=== PATIENT | female | born 1995 | race Caucasian/White ===

== ENCOUNTER 2020-09-03 21:32 | Emergency (ER) | payer OTHER, SELFPAY ==
[2020-09-03 21:37] VITALS: BP 162/96; PULSE 84; RESP 16; TEMP 36.5; O2SAT 98
--- NOTE | 2020-09-03 21:41 | ED.GENADUL_ITS ---
Discharge Plan Disposition Patient Disposition: HOME Condition: Stable Discharge Details Clinical Impression: Urinary tract infection Primary Care Provider: Carin Ruth ED Provider: Lianne Pavon Home Meds and New Rx's Prescriptions: New cephalexin 500 mg capsule 500 mg PO BID Qty: 4 RF: 0 No Action sertraline [Zoloft] 50 mg Tablet 50 mg PO DAILY RF: 0 Discharge Instructions Instructions: Urinary Tract Infection in Women (ED) Additional Instructions: Drink at least 6 to 8 glasses of water daily to stay well-hydrated Take your antibiotics as prescribed even if you feel better Referrals: Primary Care Provider [Outside] (In 2 to 3 days if symptoms are not improving or sooner if worsening) Medical Decision Making presents with symptoms most consistent of urinary tract infection. no fevers, nausea or vomiting. will obtain UA. culture pending, will give keflex 500 mg po bid for 3 days Medical Records Medical records reviewed: Yes I reviewed the patient's medical records. Lab Data Lab results reviewed: Yes I reviewed the patient's lab results. Lab results narrative: Laboratory Results - last 24 hr 09/03/20 21:48 Urine Color Yellow Urine Clarity Sl cloudy Urine pH 6.0 Ur Specific [place] 1.025 Urine Protein 100 H Urine Ketones Negative Urine Blood Trace-intact H Urine Nitrite Negative Urine Bilirubin Negative Urine Urobilinogen 0.2 Ur Leukocyte Esterase Trace H Urine RBC 0-2 Urine WBC 10-20 H Ur Epithelial Cells Rare Urine Crystals Negative Urine Bacteria Few Urine Casts Negative Urine Mucus Negative Ur Culture Indicated? Yes Urine Glucose Negative HPI General Mode of arrival: ambulatory . Date/Time Provider Initiated Documentation: 09/03/20 21:35 . Limitations to Documentation: no limitations . Information obtained by: patient . HPI Narrative: Patient presents with a 3-day history of lower abdominal discomfort low back pain frequency and urgency. She has not had any dysuria or hematuria. There is been no fevers nausea or vomiting. Related Data Home Medications Medication Instructions Recorded Confirmed cephalexin 500 mg PO BID #4 cap 09/03/20 sertraline [Zoloft] 50 mg PO DAILY 09/03/20 09/03/20 Previous Rx's Medication Instructions Recorded cephalexin 500 mg PO BID #4 cap 09/03/20 Allergies Allergy/AdvReac Type Severity Reaction Status Date / Time No Known Allergies Allergy Unverified 09/03/20 21:40 General Stated Complaint: Urinary SHELLY: 4 Review of Systems All systems reviewed & are unremarkable except as noted in HPI and below Constitutional Constitutional: Denies fever(s) Gastrointestinal Gastrointestinal: Reports abdominal pain (Lower abdominal discomfort), Denies nausea and Denies vomiting Genitourinary Genitourinary: Denies genital lesions, Denies dysuria and Reports urinary urgency (And frequency) PFSH Social History Smoking/Tobacco Use Status: Never Smoking risk assessment performed?: Yes Alcohol Intake: current Alcohol Intake frequency: a few times a month Drug use: Never Substance use type: does not use Current gender identity: female Do you feel safe at home: Yes Do you feel safe in your relationship?: Yes Exam Const General: cooperative, healthy appearing, comfortable and no acute distress Nutritional Appearance: obese Orientation: oriented x3 HENMT Head: normal to inspection, normocephalic and atraumatic Mouth: oral mucosae normal Resp Effort & Inspection: normal respiratory effort Cardio Rate: regular rate Rhythm: regular rhythm GI Inspection: normal to inspection Palpation: soft Auscultation: normal bowel sounds Back/Spine/Pelvis Back: no CVA tenderness Skin General skin exam: no rashes or lesions noted Neuro General: patient alert, patient awake and patient oriented x3 Course Vital Signs Vital signs: Vital Signs Temperature 36.5 C 09/03/20 21:37 Pulse 84 09/03/20 21:37 Respiratory Rate 16 09/03/20 21:37 Blood Pressure 162/96 H 09/03/20 21:37 Pulse Oximetry 98 09/03/20 21:37 Temperature 36.5 C 09/03/20 21:37 Temperature Source Skin 09/03/20 21:37 Pulse 84 09/03/20 21:37 Respiratory Rate 16 09/03/20 21:37 Blood Pressure 162/96 H 09/03/20 21:37 Blood Pressure Position Sitting 09/03/20 21:37 Pulse Oximetry 98 09/03/20 21:37 Oxygen Delivery Method Room Air 09/03/20 21:37 Oxygen Flow Rate 0 09/03/20 21:37 Pain Level 9 09/03/20 21:37
[2020-09-03 21:55] LABS: Bilirubin Negative (Negative); Blood Trace-intact (Negative); Clarity Sl Cloudy (Clear); Glucose Negative (Negative); Ketones Negative (Negative); Leukocyte Esterase Trace (Negative); Nitrite Negative (Negative); Specific Gravity 1.025 (1.005-1.025); Urobilinogen 0.2 EU/dL (Up TO 0.2)
[2020-09-03 22:06] LABS: Bacteria Few HPF (Negative); C & S Indicated? Yes; Casts Negative LPF (Negative); Crystals Negative HPF (Negative); Epithelial Cells Rare HPF (Negative); Mucus Negative (Negative); RBC 0-2 HPF (0-2)
[2020-09-03] MEDS: Cephalexin 500 MG CAP, 2 CAPS/BTL PO (22:12)
== END 2020-09-03 22:14 | disposition home or self-care (01) ==
PROVIDERS: Emergency Provider Nurse Practitioner Acute Care; PCP General Practice
DX: N39.0 Urinary tract infection, site not specified (principal); B95.7 Other staphylococcus as the cause of diseases classified elsewhere
CPT/HCPCS: 81025; 87077; 99283; 81003; 81015; 87086; 87186

== ENCOUNTER 2022-01-13 00:53 | Emergency (ER) | payer MEDICAID, SELFPAY ==
[2022-01-13 01:02] VITALS: BP 174/93; PULSE 96; RESP 16; TEMP 36.1; O2SAT 98
[2022-01-13 01:31] LABS: Abs Immature Grans 0.05 10^3/uL (0.0-0.06); Absolute Basophil Count 0.05 10^3/uL (0.0-0.2); Absolute Monocyte Count 1.04 10^3/uL (0.1-0.8); Basophils % 0.4; Eosinophils % 2.3; HCT 36.1 % (36.0-46.0); Immature Grans % 0.4; Lymphocytes % 27.3; MCH 28.6 pg (27.0-33.0); MCHC 33.2 % (32.0-36.0); MCV 86 fL (80-95); MPV 9.5 fL (8.0-11.0); Monocytes % 8.1; Neutrophils % 61.5; Platelet Count 276 10^3/uL (130-400); RBC 4.19 10^6/uL (3.93-5.22); RDW 12.7 % (11.7-14.6); RDW-SD 39.5 fL; WBC 12.88 10^3/uL (4.4-10.8)
--- NOTE | 2022-01-13 01:43 | ED.GENADUL_ITS ---
Discharge Plan Disposition Patient Disposition: HOME Condition: Stable Discharge Details Clinical Impression: Third trimester , movement present, Hypertension during in third trimester Primary Care Provider: Carin Ruth ED Provider: Meghan Ovalles Home Meds and New Rx's Prescriptions: New labetalol 200 mg tablet 200 mg PO BID Qty: 14 0RF Continued escitalopram oxalate 10 mg tablet 10 tab PO DAILY Label Comments: TAKE ONE TABLET BY MOUTH EVERY DAY labetalol 100 mg tablet 400 tab PO DAILY aspirin 81 mg Tablet 162 mg PO DAILY Discharge Instructions Instructions: Hypertension (ED) Additional Instructions: Your lab work today is reassuring and shows no evidence of acute concerning or significant findings. Your bedside ultrasound today noted normal movement and reassuring heart rate. Your blood pressure has improved while here in the emergency department. You are being sent home with 2 doses of labetalol to take tomorrow. A prescription for labetalol was also sent electronically to your pharmacy. It is recommended that you call your upper inspector at [facility] tomorrow for follow-up this week. Your upper inspector is recommending you have your blood pressure checked tomorrow at your obstetrics office or if you can obtain a blood pressure cuff for home. Return immediately to the emergency department if you develop any worsening or new concerning symptoms. Discharge Data Discharge Date/Time-TO BE ENTERED AT DEPARTURE: 01/13/22 03:28 Discharge Physician: Meghan Ovalles Medical Decision Making 26yo F at 27 weeks with history of preeclampsia with 2 previous pregnancies presents with concern for decreased movement today. She denies any abdominal pain or vaginal bleeding. She does also endorse that she ran out of her labetalol and has not taken it for 4 days. Blood pressure on arrival 174/93. Recheck blood pressure upon my assessment is 153/81. Patient denies any headache or blurry vision. Patient is oriented x3 and has no focal deficits. Bedside ultrasound notes active movement with heart rate 120s to 130s. Screening labs obtained on arrival and note normal renal function and urinalysis negative for protein. We will give patient a dose of her 200 mg labetalol and continue to monitor. She is followed by [facility]. Case discussed with [facility] Dr. Schroeder who states that patient can be discharged if her blood pressure remains under 160/110. Recommends obtaining BP cuff for home and calling OB in the a.m. If blood pressure greater than 160, recommend IV labetalol. Discussed urinalysis results and that if patient is asymptomatic no indication for antibiotics. Blood pressure 138/79. Patient feels comfortable going home. Pt has a BP cuff at home. She states she is starting to feel the baby move as usual. Will send home with doses of labetalol for tomorrow in addition to a prescription sent electronically to her pharmacy. Advised to call [facility] tomorrow for follow-up this week. Usual and customary return precautions given prior to discharge. Medical Records Medical records reviewed: Yes I reviewed the patient's medical records. Lab Data Lab results reviewed: Yes I reviewed the patient's lab results. Labs: Laboratory Tests Range/Units 01/13/22 01/13/22 01/13/22 01:25 01:25 01:40 WBC (4.4-10.8) 10^3/uL 12.88 H RBC (3.93-5.22) 10^6/uL 4.19 Hgb (11.2-15.7) g/dL 12.0 Hct (36.0-46.0) % 36.1 MCV (80-95) fL 86 MCH (27.0-33.0) pg 28.6 MCHC (32.0-36.0) % 33.2 RDW (11.7-14.6) % 12.7 Plt Count (130-400) 10^3/uL 276 MPV (8.0-11.0) fL 9.5 Immature Gran % 0.4 Neutrophils % 61.5 Lymphocytes % 27.3 Monocytes % 8.1 Eosinophils % 2.3 Basophils % 0.4 Nucleated RBC % (0.0-0.3) % 0.0 Absolute Neutrophils (1.2-6.7) 10^3/uL 7.92 H Absolute Lymphocytes (1.2-3.4) 10^3/uL 3.52 H Absolute Monocytes (0.1-0.8) 10^3/uL 1.04 H Absolute Eosinophils (0.0-0.7) 10^3/uL 0.30 Absolute Basophils (0.0-0.2) 10^3/uL 0.05 Sodium (136-145) mmol/L 135 L Potassium (3.5-5.1) mmol/L 3.4 L Chloride (98-107) mmol/L 105 Carbon Dioxide (21.0-32.0) mmol/L 22.9 Anion Gap (3-11) mmol/L 7.1 BUN (7-18) mg/dL 12 Creatinine (0.55-1.02) mg/dL 0.7 Estimated GFR/1.73 m2 (mL/min/1.73m2) >= 60.00 Glucose (74-106) mg/dL 92 Calcium (8.5-10.1) mg/dL 8.4 L Total Bilirubin (0.2-1.0) mg/dL 0.2 AST (15-37) U/L 15 ALT (14-59) U/L 19 Alkaline Phosphatase (46-116) U/L 98 Total Protein (6.4-8.2) g/dL 6.8 Albumin (3.4-5.0) g/dL 2.6 L Urine Color (Yellow) Yellow Urine Clarity (Clear) Sl Cloudy Urine pH (5-8) 6.5 Ur Specific [place] (1.005-1.025) 1.025 Urine Protein (Negative) mg/dL Negative Urine Ketones (Negative) mg/dL Negative Urine Blood (Negative) Negative Urine Nitrite (Negative) Negative Urine Bilirubin (Negative) Negative Urine Urobilinogen (Up TO 0.2) EU/dL 0.2 Ur Leukocyte Esterase (Negative) Moderate H Urine RBC (0-2) HPF 3-5 H Urine WBC (0-5) HPF 3-5 Ur Epithelial Cells (Negative) HPF Many Urine Crystals (Negative) HPF Negative Urine Bacteria (Negative) HPF Few Urine Casts (Negative) LPF Negative Urine Mucus (Negative) Negative Ur Culture Indicated? No/Sq. Contamination Urine Glucose (Negative) mg/dL Negative HPI General Mode of arrival: ambulatory . Date/Time Provider Initiated Documentation: 01/13/22 00:57 . Limitations to Documentation: no limitations . Information obtained by: patient . HPI Narrative: Patient is a G3, P2 at 27 weeks presents with concern for decreased movement today. Patient states the baby is normally very active and she did not note any movement today. She denies any fever, nausea, vomiting, abdominal pain or vaginal bleeding. She states she was started on labetalol for hypertension at 23 weeks and is followed by [facility] for her history of preeclampsia with her previous 2 pregnancies. She states she ran out of her labetalol last week and has not taken it for the past 4 days. She denies any headache, blurry vision, chest pain, shortness of breath or change in urination. 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 Review of Systems All systems reviewed & are unremarkable except as noted in HPI and below Constitutional Constitutional: Denies chills, Denies excessive sweating, Denies fatigue, Denies fever(s), Denies weakness and Denies weight loss Eyes Eyes: Reports system reviewed and no additional complaints, except as documented and Denies blurry vision ENT Ears, Nose, Mouth, and Throat: Denies vertigo, Denies dizziness, Denies otalgia, Denies nasal congestion, Denies sore throat and Denies throat swelling Cardiovascular Cardiovascular: Denies chest pain, Denies syncope, Denies rapid heart rate and Denies dyspnea Respiratory Respiratory: Denies chest congestion, Denies cough, Denies pain on inspiration and Denies dyspnea Gastrointestinal Gastrointestinal: Denies abdominal pain, Denies diarrhea and Denies vomiting Genitourinary Genitourinary: Denies hematuria, Denies dysuria and Denies flank pain Musculoskeletal Musculoskeletal: Denies back pain and Denies joint swelling Integumentary/Breasts Skin/Breast: Denies lesions and Denies rash Neurologic Neurologic: Denies behavioral changes, Denies confusion, Denies vertigo, Denies dizziness, Denies syncope, Denies localized weakness and Denies weakness Psychiatric Psychiatric: Denies behavioral changes, Denies confusion and Denies depression Endocrine Endocrine: Denies excessive sweating and Denies fatigue Hematologic/Lymphatic Hematologic/Lymphatic: Denies easy bruising and Denies lymphadenopathy Allergic/Immunologic Allergic/Immunologic: Denies throat swelling PFSH All Active Problems (Updated 01/13/22 @ 02:36 by Meghan Ovalles DO) Third trimester (Acute) movement present (Acute) Hypertension during in third trimester (Acute) Medical History (Updated 01/13/22 @ 02:36 by Meghan Ovalles DO) HTN (hypertension) Preeclampsia Surgical History (Updated 01/13/22 @ 02:01 by Meghan Ovalles DO) H/O section Social History Smoking/Tobacco Use Status: Never Smoking risk assessment performed?: Yes Alcohol Intake: current Alcohol Intake frequency: a few times a month Drug use: Never Substance use type: does not use Current gender identity: female Do you feel safe at home: Yes Do you feel safe in your relationship?: Yes Exam Const General: cooperative and healthy appearing Orientation: alert, awake and oriented x3 HENMT Head: normal to inspection Ears: hearing grossly normal bilaterally, external ears normal and TM's normal bilaterally General nose exam: external nose normal Face and sinus: normal facial exam Mouth: oral mucosae normal Teeth and gingiva: dentition normal Throat: posterior oropharynx normal Eyes General: appearance normal, both eyes and all related structures Eyelids: eyelids normal Pupils: PERRL EOM: EOM intact bilaterally Neck Neck: normal visual inspection Lymphatic: no lymphadenopathy noted Chest Chest: normal inspection of the chest Resp Effort & Inspection: normal respiratory effort and able to speak in complete sentences Auscultation: clear to auscultation bilaterally Cardio Rate: regular rate Rhythm: regular rhythm GI Inspection: normal to inspection Palpation: soft, not firm, no guarding, no hepatosplenomegaly, no masses and nontender Auscultation: normal bowel sounds OB/External & Speculum: other (Gravid) Back/Spine/Pelvis Back: no CVA tenderness Skin General skin exam: no rashes or lesions noted Neuro General: patient alert and patient awake Cognition: normal cognition Speech: speech normal Gait: normal gait Motor: muscle tone normal throughout Sensory Exam: no sensory deficits noted Extrem General: normal to inspection, full ROM and capillary refill normal Psych Appearance: grossly normal Mental Status: mental status grossly normal Speech and Movement: speech and movement normal Affect: normal affect Thought Process: normal Course Vital Signs Vital signs: Vital Signs Temperature 97.0 F L 01/13/22 01:02 Pulse 96 H 01/13/22 01:02 Respiratory Rate 16 01/13/22 01:02 Blood Pressure 174/93 H 01/13/22 01:02 Pulse Oximetry 98 01/13/22 01:02 Temperature 97.0 F L 01/13/22 01:02 Pulse 96 H 01/13/22 01:02 Respiratory Rate 16 01/13/22 01:02 Respiratory Effort 01/13/22 01:11 Blood Pressure 174/93 H 01/13/22 01:02 Blood Pressure Position Sitting 01/13/22 01:02 Pulse Oximetry 98 01/13/22 01:02 Pain Level 0 01/13/22 01:10
[2022-01-13 01:44] LABS: ALT 19 U/L (14-59); AST 15 U/L (15-37); Absolute Lymphocyte Count 3.52 10^3/uL (1.2-3.4); Absolute Neutrophil Count 7.92 10^3/uL (1.2-6.7); Albumin 2.6 g/dL (3.4-5.0); Alkaline Phosphatase 98 U/L (46-116); Anion Gap 7.1 mmol/L (3-11); BUN 12 mg/dL (7-18); Bilirubin, Total 0.2 mg/dL (0.2-1.0); CO2 22.9 mmol/L (21.0-32.0); CREATININE 0.7 mg/dL (0.55-1.02); Calcium 8.4 mg/dL (8.5-10.1); Chloride 105 mmol/L (98-107); Glucose 92 mg/dL (74-106); Potassium 3.4 mmol/L (3.5-5.1); Sodium 135 mmol/L (136-145); Total Protein 6.8 g/dL (6.4-8.2)
[2022-01-13 01:52] LABS: Bilirubin Negative (Negative); Blood Negative (Negative); Clarity Sl Cloudy (Clear); Glucose Negative (Negative); Ketones Negative (Negative); Leukocyte Esterase Moderate (Negative); Nitrite Negative (Negative); Specific Gravity 1.025 (1.005-1.025); Urobilinogen 0.2 EU/dL (Up TO 0.2); pH 6.5 (5-8)
[2022-01-13] MEDS: Labetalol 100 MG TAB 200 MG PO (02:12)
[2022-01-13 02:13] LABS: Bacteria Few HPF (Negative); C & S Indicated? No/Sq. Contamination; Casts Negative LPF (Negative); Crystals Negative HPF (Negative); Epithelial Cells Many HPF (Negative); Mucus Negative (Negative)
[2022-01-13] MEDS: Labetalol 100 MG TAB 400 MG PO (03:19)
== END 2022-01-13 03:28 | disposition home or self-care (01) ==
LOC: ER 03:29
PROVIDERS: Emergency Provider Physician Assistant; PCP General Practice
DX: O36.8120 Decreased fetal movements, second trimester, not applicable or unspecified (principal); O16.1 Unspecified maternal hypertension, first trimester; Z3A.27 27 weeks gestation of pregnancy
CPT/HCPCS: 80053; 99284; 81003; 81015; 85025; 99283

== ENCOUNTER 2022-02-16 07:51 | Outpatient (CLI) | payer MEDICAID, SELFPAY ==
[2022-02-16 16:13] VITALS: BP 140/76; PULSE 78
[2022-02-16 16:48] VITALS: BP 140/76; PULSE 78; TEMP 36.7
[2022-02-16 17:41] VITALS: BP 140/76; PULSE 78; TEMP 36.7
--- NOTE | 2022-02-16 17:41 | W.OBNST ---
Date of service: 02/16/22 Time of Service: 15:41 NST Evaluation Reason for NST Reasons for Nonstress Test: CHRONIC HYPERTENSION Gestational Age Gestational Age in Weeks and Days: 32 Weeks and 3Days Test and Monitor Explained Test/Monitor Explained: Test Explained, Monitor Explained and Patient Verbalized Understanding Vital Signs Blood Pressure: 140/76 Pulse: 78 Temperature: 98.1 F Urine Results Urine Protein: Negative Urine Ketones: Negative Urine Glucose: Negative Urine Blood: Negative NST Information Date on Monitor: 02/16/22 Time on Monitor: 16:05 Date off Monitor: 02/16/22 Time off Monitor: 16:45 Total Time on Monitor: 40 NST Interventions: None Contraction Frequency: 0 NST Evaluation Patient States Movement: Present FHR Baseline: 125 Variability: Moderate 6-25 bpm Accelerations: 10x10 Decelerations: None NST Results: Reactive Note NST Note Note: Pt receiving care at [facility] [place]. NST reviewed only. NST Reviewed and Verified by: Edilma Larios
== END 2022-02-16 16:50 | disposition home or self-care (01) ==
LOC: BCD 08:01 → OBS 15:41
PROVIDERS: PCP General Practice; Visit Provider Obstetrics & Gynecology
DX: O10.013 Pre-existing essential hypertension complicating pregnancy, third trimester (principal); Z3A.32 32 weeks gestation of pregnancy
CPT/HCPCS: 59025

== ENCOUNTER 2022-02-24 07:23 | Outpatient (CLI) | payer MEDICAID, SELFPAY ==
[2022-02-24 16:04] VITALS: BP 144/75; PULSE 76; TEMP 36.8
[2022-02-24 16:41] VITALS: BP 156/79; PULSE 78
[2022-02-24 16:47] VITALS: BP 144/75; PULSE 76
--- NOTE | 2022-02-24 19:20 | PDOC.NST_ITS ---
Date of service: 02/24/22 Time of Service: 19:20 NST Evaluation Reason for NST Reasons for Nonstress Test: CHRONIC HYPERTENSION Reason for NST Other: Pt seen at [facility] x1 weekly from [facility] [place] for NSTs. Gestational Age Gestational Age in Weeks and Days: 33 Weeks and 4Days Test and Monitor Explained Test/Monitor Explained: Test Explained, Monitor Explained and Patient Verbalized Understanding Vital Signs Blood Pressure: 144/75 Pulse: 76 Temperature: 98.2 F Urine Results Urine Protein: Negative Urine Ketones: Negative Urine Glucose: Negative Urine Blood: Negative NST Information Date on Monitor: 02/24/22 Time on Monitor: 16:13 Date off Monitor: 02/24/22 Time off Monitor: 16:40 Total Time on Monitor: 27 NST Interventions: None Contraction Frequency: None NST Evaluation Patient States Movement: Present FHR Baseline: 120 Variability: Moderate 6-25 bpm Accelerations: 15x15 Decelerations: None NST Results: Reactive Note NST Note Note: Reactive NST, Category 1 Strip. Patient seen BP reviewed. Follow up weekly at [facility] [place], and weekly NST without contractions every her cervix uterine contractions NST Reviewed and Verified by: Patricia Houser
[2022-02-24 19:21] VITALS: BP 144/75; PULSE 76; TEMP 36.8
== END 2022-02-24 16:50 | disposition home or self-care (01) ==
LOC: BCD 07:24 → OBS 15:09
PROVIDERS: PCP General Practice; Visit Provider Obstetrics & Gynecology
DX: O10.013 Pre-existing essential hypertension complicating pregnancy, third trimester (principal); Z3A.33 33 weeks gestation of pregnancy
CPT/HCPCS: 59025

== ENCOUNTER 2022-03-04 16:57 | Outpatient (CLI) | payer MEDICAID, SELFPAY ==
[2022-03-04 17:40] VITALS: BP 135/82; PULSE 86; TEMP 36.7
[2022-03-04 18:01] LABS: ROM Plus Negative
[2022-03-04 18:04] VITALS: BP 180/85; PULSE 86
[2022-03-04 18:10] VITALS: BP 135/82
--- NOTE | 2022-03-05 09:26 | W.OBNST ---
Date of service: 03/05/22 Time of Service: 09:26 NST Evaluation Reason for NST Reasons for Nonstress Test: OTHER, SEE COMMENT Reason for NST Other: ? SROM Gestational Age Gestational Age in Weeks and Days: 34 Weeks and 5Days Test and Monitor Explained Test/Monitor Explained: Test Explained, Monitor Explained and Patient Verbalized Understanding Vital Signs Blood Pressure: 135/82 Pulse: 86 Temperature: 98.1 F Urine Results Urine Protein: Negative Urine Ketones: Negative Urine Glucose: Negative Urine Blood: Negative NST Information Date on Monitor: 03/04/22 Time on Monitor: 17:43 Date off Monitor: 03/04/22 Time off Monitor: 18:15 Total Time on Monitor: 32 NST Interventions: None Contraction Frequency: none NST Evaluation Patient States Movement: Present FHR Baseline: 125 Variability: Moderate 6-25 bpm Accelerations: 15x15 Decelerations: None NST Results: Reactive Note NST Note Note: Reactive strip, Category 1 NST Reviewed and Verified by: Patricia Houser
[2022-03-05 09:27] VITALS: BP 135/82; PULSE 86; TEMP 36.7
== END 2022-03-04 18:20 | disposition home or self-care (01) ==
LOC: BCD 16:59 → OBS 17:18
PROVIDERS: PCP General Practice; Visit Provider Obstetrics & Gynecology
DX: O10.013 Pre-existing essential hypertension complicating pregnancy, third trimester (principal); Z3A.34 34 weeks gestation of pregnancy
CPT/HCPCS: 59025; 84112

== ENCOUNTER 2022-03-12 09:40 | Outpatient (CLI) | payer MEDICAID, SELFPAY | END 2022-03-12 09:41 | disposition home or self-care (01) | PROVIDERS: PCP General Practice; Visit Provider Obstetrics & Gynecology ==

== ENCOUNTER 2022-03-19 07:21 | Outpatient (CLI) | payer SELFPAY | END 2022-03-19 17:40 | disposition home or self-care (01) | LOC: BCD 07:24 → OBS 08:14 | PROVIDERS: PCP General Practice; Visit Provider Obstetrics & Gynecology ==

== ENCOUNTER 2023-08-23 18:29 | Outpatient (REF) | payer OTHER, SELFPAY ==
--- NOTE | 2023-08-23 13:45 | PAPFT_PTH ---
PATIENT: Xavier Villagomez I LOC: [facility] U#:[id number] AGE/SX: 28/F ROOM: RE08/23/[address]: MARY SIU : 1995 BED: DIS: 08/23/2023 SPEC #: [id number] RECD: 08/23/23 18:33 STATUS: CARL REQ #: [id number] ALFREDO: 08/23/23 13:[address]: Mary Siu DEPT: [facility] Cytology RECD BY: Raquel Doran ENTERED: 08/23/23 18:33 SP TYPE: PAPFT OTHR DR: Carin Ruth Tissues: 1 - CX/ENDOCX FOR PAP SMEARS Procedures: PAP THIN PREP/UVM Screening Comments: [id number]
== END 2023-08-23 18:30 | disposition home or self-care (01) ==
LOC: NCHCN 18:29
PROVIDERS: PCP General Practice; Visit Provider Nurse Practitioner Family
DX: Z00.00 Encounter for general adult medical examination without abnormal findings (principal); Z12.4 Encounter for screening for malignant neoplasm of cervix; Z11.51 Encounter for screening for human papillomavirus (HPV)
CPT/HCPCS: 88142

== ENCOUNTER 2023-09-01 17:08 | Outpatient (CLI) | payer OTHER, SELFPAY ==
--- NOTE | 2023-09-01 17:00 | RT.EKG_ITS ---
APPROVED REPORT Exam: Resting ECG Reason for Exam: chest discomfort Patient Location: O HR:71 bpm ECG Measurements Heart Rate 71 AXIS NC 197 P 6 QRSd 96 QRS 2 QT 395 T 29 QTc 430 Conclusion Sinus rhythm...normal P axis, V-rate 50- 99 Abnormal Q suggests anterior infarct...Q >30mS in V2-V4 I have reviewed and interpreted ECG and agree with software generated interpretation.
== END 2023-09-01 17:09 | disposition home or self-care (01) ==
LOC: DI.CM 17:08
PROVIDERS: PCP General Practice; Visit Provider Nurse Practitioner Family
DX: R07.89 Other chest pain (principal)
CPT/HCPCS: 93010

== ENCOUNTER 2023-09-01 17:40 | Emergency (ER) | payer OTHER, SELFPAY ==
--- NOTE | 2023-09-01 17:30 | RT.EKG_ITS ---
APPROVED REPORT Exam: Resting ECG Reason for Exam: chest pressure Patient Location: E HR:89 bpm ECG Measurements Heart Rate 89 AXIS LA 197 P 53 QRSd 100 QRS 61 QT 374 T 31 QTc 455 Conclusion Sinus rhythm...normal P axis, V-rate 60- 99 Low voltage, precordial leads...precordial leads <1.0mV Abnormal Q suggests anterior infarct...Q >30mS in V2-V4 NSR @ 89 Normal [place]/Intervals Normal ST segments Q waves in v1 - v2
--- NOTE | 2023-09-01 17:47 | ED.GENADUL_ITS ---
HPI General Mode of arrival: ambulatory . Date/Time Provider Initiated Documentation: 09/01/23 17:47 . Limitations to Documentation: no limitations . Information obtained by: patient . HPI Narrative: Patient seen and express care for chest pain and referred to ED. Patient reports she has had intermittent episodes lasting for 2 to 3 hours at a time of right sided chest pain over the last week. It is pleuritic in nature and she feels like she cannot take a deep breath at times. Denies any radiation of pain. Denies any diaphoresis, lightheadedness, nausea, vomiting. Has had mild nasal congestion and mild cough but no fever. Denies any leg pain or leg swelling. No previous history of clots. She is not on control. She does report that her father had a heart attack at age 39. Recently started on new medications for ADHD. Related Data Home Medications Medication Instructions Recorded Confirmed escitalopram oxalate 10 mg tablet 10 tab PO DAILY 01/13/22 09/01/23 clonidine HCl 0.1 mg tablet 0.1 mg PO BID 06/18/23 09/01/23 lisdexamfetamine 20 mg capsule 20 mg PO DAILY 09/01/23 09/01/23 (Vyvanse) Allergies Allergy/AdvReac Type Severity Reaction Status Date / Time No Known Allergies Allergy Unverified 09/01/23 16:43 General SHELLY: 4 Review of Systems Narrative: Per HPI Exam Narrative Exam Narrative: Const: WDWN female in NAD. HEENT: NC/AT. Normal facial exam. Eyes: Normal conjunctiva and sclera. Neck: Supple. Trachea midline. Lungs: Normal respiratory effort. Lungs are clear. No chest wall tenderness. Cor: RRR without murmur/gallop. Good radial pulses. GI: Soft. NT/ND. No guarding or rebound. Neuro: A+O x 3. Normal speech, mentation, gait. Cranial nerves II - XII grossly intact. No gross motor or sensory deficit. Ext: No C/C/E. No calf tenderness. Skin: Warm and dry without rash. Medical Decision Making Patient is a 28-year-old female presenting with right-sided chest pain that is somewhat pleuritic in nature and has been coming and going over the last week lasting few hours at a time. Denies shortness of breath but does feel like she cannot take a deep breath. Mild congestion and cough but no fever, sore throat. Chest pain is not reproducible. She is low risk for PE per Wells criteria and subsequently PERCs out. Her EKG is sinus rhythm with normal intervals, axis, ST segments. History and symptoms not consistent with aortic pathology. Given age doubt this is ACS but will obtain labs including delta troponin. Likely pleurisy related to probable mild URI. Will obtain chest x-ray but doubt pneumonia given normal lung sounds and saturations. Patient's chest x-ray per my read with no acute cardiopulmonary process. Laboratory studies are unremarkable with normal white count and hemoglobin, normal chemistries and liver function. Initial troponin less than 50 and 3-hour troponin remains the same. Given mild URI symptoms with pleuritic type chest pain on the right this is likely pleurisy and related to a viral infection. Recommend ibuprofen 3 times a day over the next few days and follow-up with primary care next week. Return precautions provided. Medical Records Medical records reviewed: Yes I reviewed the patient's medical records. Lab Data Lab results reviewed: Yes I reviewed the patient's lab results. ECG Data Attestation: I personally reviewed and interpreted this ECG (s) as follows: Prior ECG tracings: available for review Interpretation: see EKG Quality:SDOH Health Related Social Needs: No Data to Display [facility] All Active Problems (Updated 09/01/23 @ 21:36 by Michael Medina MD) Atypical chest pain (Acute) Medical History HTN (hypertension) Preeclampsia Surgical History H/O section Social History Smoking/Tobacco Use Status: Never Smoking risk assessment performed?: Yes Alcohol Intake: current Alcohol Intake frequency: a few times a month Drug use: Never Substance use type: does not use Current gender identity: female Do you feel safe at home: Yes Do you feel safe in your relationship?: Yes Discharge Plan Disposition Patient Disposition: Home Condition: Good Discharge Details Clinical Impression: Atypical chest pain Primary Care Provider: Carin Ruth ED Provider: Michael Medina Home Meds and New Rx's Prescriptions: Continued lisdexamfetamine [Vyvanse] 20 mg capsule 20 mg PO DAILY clonidine HCl 0.1 mg tablet 0.1 mg PO BID escitalopram oxalate 10 mg tablet 10 tab PO DAILY Patient Comments: TAKE ONE TABLET BY MOUTH EVERY DAY Discharge Instructions Instructions: Chest Pain (ED) Additional Instructions: You were seen for right-sided chest pain that is somewhat pleuritic in nature. Your exam, EKG, chest x-ray, laboratory studies are reassuring. Given the mild URI symptoms and pleuritic type pain this is likely all viral in nature. Try taking Motrin 3 times a day for the next few days to see if this helps with your chest pain. Follow-up with your primary care next week. Return to the ED for any new or worsening chest pain, shortness of breath, spiking fevers, other concerns.
[2023-09-01 17:50] VITALS: RESP 16
[2023-09-01 17:52] VITALS: BP 173/87; PULSE 88; O2SAT 100
[2023-09-01 17:53] VITALS: O2SAT 100
[2023-09-01 18:00] VITALS: O2SAT 100
--- NOTE | 2023-09-01 18:00 | DI.RAD_ITS ---
Exam(s) XR CHEST 2V PA LATERAL EXAM: XR CHEST 2V PA LATERAL 2 CLINICAL HISTORY: CP TECHNIQUE: 2D digital imaging was performed of the chest. Two images were obtained. PA and lateral views were obtained. COMPARISON: No exams were available for comparison FINDINGS: MEDIASTINUM: Normal. HEART: Normal. PULMONARY VASCULATURE: Normal. LUNGS: Clear. PLEURAL SPACE: No pleural effusion or pneumothorax. BONE:Within normal limits for the patient's age. OTHER FINDINGS:Normal. IMPRESSION: No acute pulmonary findings. DATA REPOSITORY: RADIATION DOSE DELIVERED:
[2023-09-01 18:01] VITALS: BP 162/74; PULSE 82; O2SAT 100
[2023-09-01 18:10] LABS: Abs Immature Grans 0.03 10^3/uL (0.0-0.06); Absolute Basophil Count 0.05 10^3/uL (0.0-0.2); Absolute Lymphocyte Count 3.74 10^3/uL (1.2-3.4); Absolute Monocyte Count 0.75 10^3/uL (0.1-0.8); Absolute Neutrophil Count 5.68 10^3/uL (1.2-6.7); Basophils % 0.5; HCT 39.2 % (36.0-46.0); HGB 12.8 g/dL (11.2-15.7); Immature Grans % 0.3; Lymphocytes % 36.1; MCH 26.6 pg (27.0-33.0); MCHC 32.7 % (32.0-36.0); MCV 82 fL (80-95); MPV 9.6 fL (8.0-11.0); Monocytes % 7.2; Neutrophils % 54.9; Platelet Count 387 10^3/uL (130-400); RBC 4.81 10^6/uL (3.93-5.22); RDW 13.7 % (11.7-14.6); RDW-SD 39.9 fL; WBC 10.35 10^3/uL (4.4-10.8)
[2023-09-01 18:29] LABS: ALT 18 U/L (14-59); AST 12 U/L (15-37); Alkaline Phosphatase 85 U/L (46-116); Anion Gap 10.2 mmol/L (3-11); BUN 13 mg/dL (7-18); Bilirubin, Total 0.3 mg/dL (0.2-1.0); CO2 26.8 mmol/L (21.0-32.0); CREATININE 0.9 mg/dL (0.55-1.02); Calcium 9.6 mg/dL (8.5-10.1); Chloride 103 mmol/L (98-107); Estimated GFR 88.75 (mL/min/1.73m2); Glucose 90 mg/dL (74-106); Magnesium 1.9 mg/dL (1.8-2.4); Potassium 3.5 mmol/L (3.5-5.1); Sodium 140 mmol/L (136-145); Troponin I < 50 ng/L (< or =60)
[2023-09-01 21:27] LABS: Troponin I < 50 ng/L (< or =60)
== END 2023-09-01 21:46 | disposition home or self-care (01) ==
PROVIDERS: Emergency Provider Emergency Medicine; PCP General Practice
DX: R07.89 Other chest pain (principal); R41.9 Unspecified symptoms and signs involving cognitive functions and awareness; F90.9 Attention-deficit hyperactivity disorder, unspecified type
CPT/HCPCS: 36415; 80053; 81025; 93005; 99284; 71046; 83735; 84484; 85025; 93010

== ENCOUNTER 2024-05-19 10:46 | Outpatient (CLI) | payer OTHER, SELFPAY ==
--- NOTE | 2024-05-19 11:11 | DI.RAD_ITS ---
Exam(s) XR CHEST 2V PA LATERAL EXAM: XR CHEST 2V PA LATERAL CLINICAL HISTORY: evaluate pathology,cough, R05.9. TECHNIQUE: 2D digital imaging was performed. COMPARISON: CR XR CHEST 2V PA LATERAL from 09/01/2023 FINDINGS: 2 views: Heart size is normal. The mediastinum is not widened. There is a prominent area of infiltrate in the lateral segment of the right middle lobe. No pleural effusion. No cavitation. The left lung is clear. IMPRESSION: Significant infiltrate in the right middle lobe. Appropriate follow-up recommended. DATA REPOSITORY: RADIATION DOSE DELIVERED:
== END 2024-05-19 11:06 ==
PROVIDERS: PCP General Practice; Visit Provider Nurse Practitioner Family
DX: R05.9 Cough, unspecified (principal)
CPT/HCPCS: 71046

== ENCOUNTER 2024-12-27 15:41 | Outpatient (REF) | payer OTHER, SELFPAY ==
[2024-12-27 15:56] LABS: Bilirubin Negative (Negative); Blood Negative (Negative); Clarity Sl Cloudy (Clear); Glucose Negative (Negative); Ketones Negative (Negative); Leukocyte Esterase Small (Negative); Nitrite Negative (Negative); Urobilinogen 0.2 mg/dL (Up to 0.2); pH 6.5 (5-8)
[2024-12-27 16:05] LABS: Bacteria Few HPF (Negative); C & S Indicated? No/Sq. Contamination; Casts Negative LPF (Negative); Crystals Few Amorphous HPF (Negative); Epithelial Cells Moderate HPF (Negative); Mucus Negative (Negative); RBC 0-2 HPF (0-2); WBC 0-2 HPF (0-5)
== END 2024-12-27 15:42 | disposition home or self-care (01) ==
LOC: NCHCN 15:41
PROVIDERS: PCP General Practice; Visit Provider Nurse Practitioner Family
DX: R35.0 Frequency of micturition (principal); R82.89 Other abnormal findings on cytological and histological examination of urine
CPT/HCPCS: 81003; 81015